=== PATIENT | male | born 1955 | race Caucasian/White ===

== ENCOUNTER 2023-06-14 16:00 | Observation (INO) | payer OTHER ==
[~2023-06-14] VITALS: Ht 177.8 cm; Wt 96.3 kg
[2023-06-14 09:59] LABS: BASOPHILS # (AUTO) 0.15 K/uL (0.00-0.20); EOSINOPHILS # (AUTO) 0.14 K/uL (0.00-0.70); EOSINOPHILS % (AUTO) 1.9 % (0.0-8.0); HEMATOCRIT 40.6 % (42-54); IMMATURE GRANULOCYTE ABSOLUTE 0.04 K/uL (0-1); LYMPHOCYTES % (AUTO) 26.1 % (21.0-51.0); MEAN CORPUSCULAR HEMOGLOBIN 29.7 pg (27.0-33.0); MEAN CORPUSCULAR HGB CONC 31.8 g/dL (32.0-36.0); MEAN CORPUSCULAR VOLUME 93.3 fL (79-99); MONOCYTES # (AUTO) 0.8 K/uL (0.1-1.0); NEUTROPHILS # (AUTO) 4.5 K/uL (1.8-7.7); NEUTROPHILS % (AUTO) 59.5 % (40.0-77.0); PLATELET COUNT (AUTO) 222 K/uL (130-400); RED BLOOD CELL COUNT(AUTO) 4.35 MIL/uL (4.50-6.20); RED CELL DISTRIBUTION WIDTH 13.9 % (11.0-15.5); WHITE BLOOD COUNT (AUTO) 7.5 K/uL (4.8-10.8)
[2023-06-14 10:12] LABS: CREATININE 1.3 mg/dL (0.5-1.5); POTASSIUM 5.3 mmol/L (3.5-5.1)
[2023-06-14 10:53] VITALS: BP 162/83; PULSE 70; RESP 13
[~2023-06-14 16:00] MED LIST: ASPI-1146 PO; CARV6.25 PO; CHOL2000 PO; EMPA25TA PO; EZET10TA48 PO; FENO145T26 PO; FISH1CAP27 PO; GABA-529 PO; LISI10TA24 PO; MULT-1367 PO; OMEP40CA21 PO; ROSU40TA21 PO; UBID50TA3 PO
[2023-06-18] VITALS (25 sets, daily range): BP systolic 120–153; BP diastolic 60–84; PULSE 64–90; RESP 14–18; O2SAT 95
[2023-06-18] MEDS ORDERED: LIDOCAINE 2%-EPI PF 30 ML+BUPIVACAINE/PF 0.25% 30ML /60ML SYR IJ SCH ×2 (09:00)
[2023-06-18] MEDS ORDERED: 0.9%NACL 1000ML 1,000 ML IV ONE (09:41)
[2023-06-18] MEDS ORDERED: CEFAZOLIN SODIUM 2 GM VIAL ONE (09:41)
[2023-06-18] MEDS ORDERED: PROPOFOL 10 MG/ML 20ML VIAL IV ONE (09:58)
[2023-06-18] MEDS ORDERED: ROCURONIUM 10MG/1ML SYR 10 MG/ML ML ONE ×3 (09:58→11:42)
[2023-06-18] MEDS ORDERED: MIDAZOLAM HCL 1 MG/ML 2ML VIAL ONE (09:58)
[2023-06-18] MEDS ORDERED: FENTANYL CITRATE PF 50 MCG/1 ML 5ML AMP IV ONE (09:58)
[2023-06-18] MEDS ORDERED: MAGNESIUM SULFATE 1 GM/2 ML VIAL ONE (09:59)
[2023-06-18] MEDS ORDERED: PROPOFOL 1000 MG/100 ML 100 ML IV ONE (09:59)
[2023-06-18] MEDS ORDERED: KETAMINE 50MG/ML SYRINGE 50 MG/ML DISP.SYRIN ONE (10:00)
[2023-06-18] MEDS ORDERED: ONDANSETRON 4MG INJ ONE (10:01)
[2023-06-18] MEDS ORDERED: CEFAZOLIN SODIUM 1 GM VIAL ONE (10:01)
[2023-06-18] MEDS ORDERED: MORPHINE PF 100MG/10ML AMP IV ONE (10:02)
[2023-06-18] MEDS ORDERED: THROMBIN-JMI 20000 UNIT KIT TP ONE (10:02)
[2023-06-18] MEDS ORDERED: DEXAMETHASONE SOD PHOSPHATE 10MG/ML 1ML VIAL ONE (10:36)
[2023-06-18] MEDS ORDERED: CEFAZOLIN SODIUM 2 GM VIAL IVPB ONE (10:49)
[2023-06-18] MEDS ORDERED: THROMBIN 20000 UNITS/VIAL POWDER TP ONE (11:00)
[2023-06-18] MEDS ORDERED: CEFAZOLIN SODIUM 1 GM VIAL IRRIG ONE (11:00)
[2023-06-18] MEDS ORDERED: MORPHINE 10 MG SYG IM ONE (11:00)
[2023-06-18] MEDS ORDERED: GLYCOPYRROLATE 1 MG/5 ML SYRINGE ONE (13:56)
[2023-06-18] MEDS ORDERED: NEOSTIGMINE 5MG/5ML SYR IV ONE (13:56)
[2023-06-18] MEDS ORDERED: FENTANYL CITRATE PF 50 MCG/1 ML 2ML VIAL ONE ×2 (14:01→14:35)
[2023-06-18] MEDS ORDERED: 0.9%NACL 10ML VIAL IVP PRN (14:30)
[2023-06-18] MEDS ORDERED: MORPHINE 2 MG SYG IVP PRN (14:30)
[2023-06-18] MEDS ORDERED: PROMETHAZINE HCL 25 MG/ML 1ML AMPULE IM PRN (14:30)
[2023-06-18] MEDS ORDERED: MEPERIDINE-PF 25 MG/ML SYG ONE ×2 (14:34→15:00)
[2023-06-18] MEDS ORDERED: KETOROLAC 30MG VIAL (30MG/ML) ONE (14:35)
[2023-06-18] MEDS: LACTATED RINGERS 1000ML 1,000 ML IV SCH (16:00)
[2023-06-18] MEDS: DEXAMETHASONE SOD PHOSPHATE 4 MG/ML 1ML VIAL IVP SCH ×2 (17:46→19:48)
[2023-06-18] MEDS: CEFAZOLIN SODIUM 2 GM VIAL IVPB SCH ×3 (18:52→23:51)
[2023-06-18] MEDS: FISH OIL 1000 MG/CAP PO SCH (19:49)
[2023-06-18] MEDS: Cholecalciferol (Vitamin D3) 50 MCG PO SCH (19:49)
[2023-06-18] MEDS: CARVEDILOL 6.25 MG TABLET PO SCH (19:49)
[2023-06-18] MEDS: ATORVASTATIN 40 MG TABLET PO SCH (19:49)
[2023-06-18] MEDS: FENOFIBRATE NANOCRYSTALLIZED 48 MG TAB PO SCH (19:50)
[2023-06-18] MEDS: LISINOPRIL 10 MG TABLET PO SCH (19:50)
[2023-06-18] MEDS: GABAPENTIN 100 MG CAPSULE PO SCH (19:50)
[2023-06-18] MEDS ORDERED: NON-FORMULARY MEDICATION 1 EACH (Rosuvastatin Calcium 40 MG) PO SCH (21:00)
[2023-06-19] VITALS (7 sets, daily range): BP systolic 110–121; BP diastolic 58–74; PULSE 75–90; RESP 16–18; O2SAT 95
[2023-06-19] MEDS: LACTATED RINGERS 1000ML 1,000 ML IV SCH ×2 (03:30→16:22)
[2023-06-19] MEDS: DEXAMETHASONE SOD PHOSPHATE 4 MG/ML 1ML VIAL IVP SCH ×3 (03:30→15:12)
[2023-06-19] MEDS: HYDROCODONE/ACETAMINOPHEN 5/325 MG TAB PO PRN ×4 (05:18→23:46)
[2023-06-19] MEDS: Cholecalciferol (Vitamin D3) 50 MCG PO SCH ×2 (07:50→20:05)
[2023-06-19] MEDS: ASPIRIN 81 MG EC TAB PO SCH (09:00)
[2023-06-19] MEDS ORDERED: NON-FORMULARY MEDICATION 1 EACH (Multivitamin 1 EACH) PO SCH (09:00)
[2023-06-19] MEDS: MULTIVITAMIN TABLET PO SCH (09:00)
[2023-06-19] MEDS: GABAPENTIN 100 MG CAPSULE PO SCH ×2 (09:00→20:06)
[2023-06-19] MEDS: EZETIMIBE 10 MG TAB PO SCH (09:00)
[2023-06-19] MEDS ORDERED: UBIDECARENONE 100 MG PO SCH (09:00)
[2023-06-19] MEDS: CARVEDILOL 6.25 MG TABLET PO SCH ×2 (09:00→20:05)
[2023-06-19] MEDS: FISH OIL 1000 MG/CAP PO SCH ×2 (09:00→20:05)
[2023-06-19] MEDS: EMPAGLIFLOZIN 25MG TABLET PO SCH (09:00)
[2023-06-19] MEDS ORDERED: NON-FORMULARY MEDICATION 1 EACH (Omeprazole 40 MG) PO SCH (09:00)
[2023-06-19] MEDS: PANTOPRAZOLE 40 MG TAB DR PO SCH (09:07)
[2023-06-19] MEDS: CEFAZOLIN SODIUM 2 GM VIAL IVPB SCH (15:12)
[2023-06-19] MEDS: ATORVASTATIN 40 MG TABLET PO SCH (20:06)
[2023-06-19] MEDS: LISINOPRIL 10 MG TABLET PO SCH (20:06)
[2023-06-19] MEDS: FENOFIBRATE NANOCRYSTALLIZED 48 MG TAB PO SCH (20:06)
[2023-06-20 03:41] VITALS: BP 130/74; PULSE 65; RESP 18
[2023-06-20] MEDS: HYDROCODONE/ACETAMINOPHEN 5/325 MG TAB PO PRN ×3 (04:29→12:32)
[2023-06-20] MEDS: GABAPENTIN 100 MG CAPSULE PO SCH (07:11)
[2023-06-20] MEDS: CARVEDILOL 6.25 MG TABLET PO SCH (07:11)
[2023-06-20] MEDS: Cholecalciferol (Vitamin D3) 50 MCG PO SCH (07:11)
[2023-06-20] MEDS: ASPIRIN 81 MG EC TAB PO SCH (07:11)
[2023-06-20] MEDS: MULTIVITAMIN TABLET PO SCH (07:11)
[2023-06-20] MEDS: EZETIMIBE 10 MG TAB PO SCH (07:11)
[2023-06-20] MEDS: PANTOPRAZOLE 40 MG TAB DR PO SCH (07:11)
[2023-06-20] MEDS: EMPAGLIFLOZIN 25MG TABLET PO SCH (07:11)
[2023-06-20] MEDS: FISH OIL 1000 MG/CAP PO SCH (07:11)
[2023-06-20 07:59] VITALS: BP 120/69; PULSE 68; RESP 16
[2023-06-20 08:00] VITALS: O2SAT 98
== END 2023-06-20 13:26 | disposition home or self-care (01) ==
LOC: DAHIP 06-18 07:01 → 4BH 06-18 15:20
PROVIDERS: ADMIT Neurological Surgery; ATTEND Neurological Surgery
DX: M48.061 Spinal stenosis, lumbar region without neurogenic claudication (principal); I10 Essential (primary) hypertension; E11.9 Type 2 diabetes mellitus without complications; E78.5 Hyperlipidemia, unspecified
CPT/HCPCS: 80048; 85025; 36415; 71045; 96365; 96366 ×2; 96375 ×2; 63047; 63048 ×3; 82948 ×5; 72020; 96376; A6260; J1100 ×5; G0378 ×45; G0379; A4600; A4510; A4663; J7030 ×2; J7120; A4344; J3010 ×3; J0690 ×7; J3490 ×4; J2710; J0665; J3475; J2270 ×2; J2250; J2704 ×2; J2274; J2405; J1885; J2175 ×2; A6219; A4215; A4223; A4222; A4221